=== PATIENT | female | born 1960 | race Caucasian/White ===

== ENCOUNTER → 2017-06-22 | Outpatient (CLI) | payer BC ==
--- NOTE | 2017-06-23 07:46 | CT ---
EXAMINATION TYPE: CT chest wo con DATE OF EXAM: 06/22/2017 COMPARISON: NONE HISTORY: Interstitial lung disease coughing and choking x2 months CT DLP: 123.00 mGycm, Automated exposure control for dose reduction was used. CONTRAST: None TECHNIQUE: Axial images were obtained at 1 mm thick sections at 10 mm intervals. This will limit po rtions of the examination which may not be visualized within the [id number]. Images were obtained in the prone and supine views. FINDINGS: Portion of the thyroid visualized is normal. This has limited evaluation. No suspicious lung nodules or focal infiltrates are present. Mild peribronchial thickening is present . Correlate for mild chronic bronchitis. No enlarged mediastinal or hilar adenopathy is evident. The ascending aorta diameter at the level o f the main pulmonary artery is 3.2 cm. The main pulmonary artery diameter at the bifurcation is 2.[address] sections are obtained through the upper abdomen. Abdomen is essentially unremarkable. IMPRESSIONS: 1. Findings appear suggestive for early mild chronic bronchitis. 2. No suspicious acute findings
== END | disposition home or self-care (01) ==
LOC: RADCTMAIN 18:12
PROVIDERS: ATTEND Family Medicine
DX: J84.9 Interstitial pulmonary disease, unspecified (principal)
CPT/HCPCS: 71250

== ENCOUNTER → 2019-01-22 | Outpatient (CLI) | payer BC ==
--- NOTE | 2019-01-23 09:15 | MM ---
Reason for exam: screening (asymptomatic). Last mammogram was performed 2 years and 8 months ago. History: Patient is postmenopausal. Benign US breast aspiration single LT of the left breast, May 06, 2015. Benign cyst aspiration of the right breast, 2005. Benign US right core biopsy of the right breast, 2005. Benign cyst aspiration of both breasts, 2000. Benign core biopsy of the right breast, 2000. Benign excisional biopsy of the left breast, 1999. Benign left breast needle localization of the left breast, 1999. Taking estrogen for 15 years beginning at age 38. Physical Findings: A clinical breast exam by your physician is recommended on an annual basis and results should be correlated with mammographic findings. MG 3D Screening Mammo W/Cad Bilateral CC and MLO view(s) were taken. XCCL view(s) were taken of the left breast. Prior study comparison: May 25, 2016, bilateral MG diagnostic mammo w CAD REJI. April 24, 2015, left breast MG work up mamm w CAD LT. The breast tissue is heterogeneously dense. This may lower the sensitivity of mammography. There is chronic nodularity in the right breast. No significant changes when compared with prior studies. ASSESSMENT: Negative, BI-RAD 1 RECOMMENDATION: Routine screening mammogram of both breasts in 1 year. Patient should continue monthly self breast exams. A negative report should not preclude additional follow up of suspicious palpable abnormalities.
== END ==
LOC: RADMAMWWP 06:47
PROVIDERS: ATTEND Family Medicine
DX: Z12.31 Encounter for screening mammogram for malignant neoplasm of breast (principal)
CPT/HCPCS: 77063; 77067

== ENCOUNTER → 2021-09-03 | Outpatient (CLI) | payer BC ==
--- NOTE | 2021-09-06 10:40 | MM ---
Reason for exam: screening (asymptomatic). Last mammogram was performed 2 years and 7 months ago. History: Patient is postmenopausal. Benign US breast aspiration single LT of the left breast, May 06, 2015. Benign cyst aspiration of the right breast, 2005. Benign US right core biopsy of the right breast, 2005. Benign cyst aspiration of both breasts, 2000. Benign core biopsy of the right breast, 2000. Benign excisional biopsy of the left breast, 1999. Benign left breast needle localization of the left breast, 1999. Taking estrogen for 15 years beginning at age 38. Physical Findings: A clinical breast exam by your physician is recommended on an annual basis and results should be correlated with mammographic findings. MG Screening Mammo w CAD Bilateral CC and MLO view(s) were taken. Prior study comparison: January 22, 2019, bilateral MG 3d screening mammo w/cad. May 25, 2016, bilateral MG diagnostic mammo w CAD REJI. The breast tissue is heterogeneously dense. This may lower the sensitivity of mammography. Stable benign calcifications. No significant changes when compared with prior studies. ASSESSMENT: Benign, BI-RAD 2 RECOMMENDATION: Routine screening mammogram of both breasts in 1 year.
== END | disposition home or self-care (01) ==
LOC: RADMAMWWP 09:40
PROVIDERS: ATTEND Family Medicine
DX: Z12.31 Encounter for screening mammogram for malignant neoplasm of breast (principal)
CPT/HCPCS: 77067

== ENCOUNTER 2021-10-22 07:23 | Day surgery (SDC) | payer BC ==
[2021-10-21 11:17] VITALS: BMI 19.3
[~2021-10-22 07:23] MED LIST: LACTATED RINGERS 1,000 ML IV SCH
[2021-10-22 07:47] VITALS: RESP 16; TEMP 98.1
[2021-10-22] MEDS ORDERED: LACTATED RINGERS 1,000 ML IV ONE ×2 (07:59)
[2021-10-22] MEDS ORDERED: LIDOCAINE 1% (10MG/ML) FOR IV START INTRADERMA ONE (07:59)
[2021-10-22] MEDS ORDERED: PROPOFOL 10 MG/ML 20 ML VIAL IV ONE (08:22)
--- NOTE | 2021-10-22 08:41 | P.PCN ---
Date of Procedure: 10/22/21 Procedure(s) Performed: BRIEF HISTORY: Patient is a 61-year-old pleasant white female scheduled for an elective colonoscopy as a part of renal for colorectal neoplasia. PROCEDURE PERFORMED: Colonoscopy. PREOPERATIVE DIAGNOSIS: Screening for colon cancer. IV sedation per Anesthesia. PROCEDURE: After informed consent was obtained, the patient, was brought into the endoscopy unit. IV sedation was administered by Anesthesia under continuous monitoring. Digital rectal examination was normal. Initially the Olympus CF-160 flexible video colonoscope was then inserted in the rectum, gradually advanced into the cecum without any difficulty. Careful examination was performed as the scope was gradually being withdrawn. Ileocecal valve and the appendiceal orifice were visualized and appeared normal. Prep was excellent. Mucosa of the cecum, ascending colon, transverse colon, descending colon, sigmoid colon, and rectum appeared normal. Retroflexion was performed in the rectum and no lesions were seen. The patient tolerated the procedure well. IMPRESSION: Normal-appearing colon from rectum to cecum with no evidence of colorectal neoplasia. RECOMMENDATIONS: Findings of this examination were discussed with the patient as well as her family. She was advised to have a repeat screening colonoscopy in .
[2021-10-22 09:06] VITALS: BP 124/81; PULSE 67
== END 2021-10-22 09:27 | disposition home or self-care (01) ==
LOC: ORWHC2ENDO 07:23
PROVIDERS: ATTEND Internal Medicine Gastroenterology
DX: Z12.11 Encounter for screening for malignant neoplasm of colon (principal)
CPT/HCPCS: 45378; J2704

== ENCOUNTER → 2022-09-20 | Outpatient (CLI) | payer BC ==
--- NOTE | 2022-09-20 15:50 | BD ---
EXAMINATION TYPE: Axial Bone Density DATE OF EXAM: 09/20/2022 COMPARISON: 12.27.13 PREVIOUS UNAVAILABLE CLINICAL HISTORY: 62 years year old Female. ICD-10 CODE: Z47.89 S62.009A S72.90XA SCAPHOID FRACTURE, LT TOTAL HIP Height: 67IN Weight: 123LB FRAX RISK QUESTIONS: History of Fracture in Adulthood: YES Secondary Osteoporosis: YES 3. Menopause before 45: YES RISK FACTORS HISTORY OF: Hip Fracture (Right/Left): YES, LEFT When: 2021 History of Wrist Fracture: YES, BILATERAL When: 2021 Surgery to Hip(left): LTHA When: 2021 Family History of Osteoporosis: YES Active: YES Postmenopausal woman: YES Take estrogen and/or progesterone medications: YES, PREMARIN How lon YEARS Frequent falls: YES MEDICATIONS: Thyroid Medications: Which medication: YES LEVOTHYROXINE How Lon YEARS Additional Medications: ALLERGY MED Additional History: HX SHOULDER FX EXAM MEASUREMENTS: Bone mineral densitometry was performed using the [employer] System. Bone mineral density as measured about the Lumbar spine is: ----- L1-L4(G/cm2): 0.851 T Score Values are as follows: ----- L1: -2.6 ----- L2: -2.6 ----- L3: -2.5 ----- L4: -3.2 ----- L1-L4: -2.7 PREVIOUS 12-27-13 UNAVAILABLE Bone mineral density about the R hip (g/cm2): 0.714 T Score values are as follows: -----R Neck: -2.2 -----R Total: -2.3 PREVIOUS UNAVAILABLE FRAX%s: The graph provided illustrates a 16.5% chance for a major osteoporotic fx and a 3.2% chance f or the hips probability for fx in 10 years time. IMPRESSION: Osteoporosis (T Score less than -2.5). There is increased fracture risk and therapy is usually indicated based on age. Re-Screen 1-2 years. NOTE: T-SCORE=SD OF THE YOUNG ADULT MEAN.
== END | disposition home or self-care (01) ==
LOC: RADBDWWP 11:24
PROVIDERS: ATTEND Orthopaedic Surgery
DX: M81.0 Age-related osteoporosis without current pathological fracture (principal); Z78.0 Asymptomatic menopausal state
CPT/HCPCS: 77080

== ENCOUNTER → 2022-10-19 | Outpatient (CLI) | payer BC ==
--- NOTE | 2022-10-19 12:39 | MM ---
Reason for Exam: Screening (asymptomatic). Last mammogram was performed 1 year(s) and 1 month(s) ago. Patient History: Menarche at age 12. First Full-Term at age 21. Left ovary removed at age 38. Right ovary removed at age 38. Hysterectomy at age 38. Postmenopausal. Currently using Estrogen and Progesterone, beginning at age 38 for 15 years. 1999, Benign Excisional Biopsy on the left side. 2000, Benign Core Biopsy on the right side. 2005, Benign Core Biopsy on the right side. 2005, Benign Cyst Aspiration on the right side. 2000, Bilateral Benign Cyst Aspiration. 1999, Benign Excisional Biopsy on the left side. 05/06/2015, Benign Cyst Aspiration on the left side. Risk Values: Kassidy 5 year model risk: 2.0%. NCI Lifetime model risk: 7.9%. Prior Study Comparison: 02/14/2011 Bilateral Diagnostic Ultrasound, [facility]. 10/24/2012 Bilateral Diagnostic Mammogram, [facility]. 12/23/2013 Bilateral Screening Mammogram, [facility]. 04/16/2015 Bilateral Screening Mammogram, [facility]. 04/24/2015 Left Diagnostic Ultrasound, [facility]. 04/24/2015 Left Diagnostic Mammogram, [facility]. 05/25/2016 Bilateral Diagnostic Mammogram, [facility]. 01/22/2019 Bilateral Screening Mammogram, [facility]. 09/03/2021 Bilateral Screening Mammogram, [facility]. Tissue Density: The breast tissue is extremely dense which could obscure a lesion on mammography. Findings: Analyzed By CAD. There is no suspicious group of microcalcifications or new suspicious mass in either breast. Overall Assessment: Negative, BI-RAD 1 Management: Screening Mammogram of both breasts in 1 year. A clinical breast exam by your physician is recommended on an annual basis and results should be correlated with mammographic findings. Electronically signed and approved by: Luis Manuel Borden M.D. Radiologis
== END | disposition home or self-care (01) ==
LOC: RADMAMWWP 08:00
PROVIDERS: ATTEND Family Medicine
DX: Z12.31 Encounter for screening mammogram for malignant neoplasm of breast (principal); Z78.0 Asymptomatic menopausal state; Z98.890 Other specified postprocedural states
CPT/HCPCS: 77067

== ENCOUNTER → 2023-03-03 | Outpatient (CLI) | payer BC ==
--- NOTE | 2023-03-03 13:48 | US ---
EXAMINATION TYPE: US pelvis complete transvag DATE OF EXAM: 03/03/2023 COMPARISON: NONE CLINICAL INDICATION: Female, 62 years old with history of R10.2 PELVIC AND PERINEAL PAIN; Pain total hysterectomy. TECHNIQUE: Transvaginal (TV) and Transabdominal (TA) . EXAM MEASUREMENTS: Uterus: Surgically absent Endometrial Stripe: Surgically absent Right Ovary: Surgically absent Left Ovary: Surgically absent 1. Uterus: Surgically absent 2. Endometrium: Surgically absent 3. Right Ovary: Surgically absent 4. Left Ovary: Surgically absent 5. Bilateral Adnexa: wnl 6. Posterior cul-de-sac: wnl IMPRESSION: No evidence for acute process. No organizing fluid collection or mass.
== END | disposition home or self-care (01) ==
LOC: RADUSWWP 12:53
PROVIDERS: ATTEND Family Medicine
DX: R10.2 Pelvic and perineal pain (principal)
CPT/HCPCS: 76830; 76856

== ENCOUNTER → 2023-03-14 | Outpatient (CLI) | payer BC ==
--- NOTE | 2023-03-14 11:34 | XR ---
EXAMINATION TYPE: XR lumbar spine 2 or 3V DATE OF EXAM: 03/14/2023 Comparison: None Clinical History: 62-year-old female M54.50 low back pain Findings: 5 lumbar type vertebral bodies. Facet arthropathy lower lumbar spine. Vertebral body heights are pres erved and alignment is maintained. Slight dextroconvex curvature of the lumbar spine. Incidental larg e stool burden. Impression: Facet arthropathy lower lumbar spine. No vertebral compression collapse or malalignment. Incidental l arge stool burden; correlate for constipation.
== END | disposition home or self-care (01) ==
LOC: RADXRMAIN 11:07
PROVIDERS: ATTEND Family Medicine
DX: M47.816 Spondylosis without myelopathy or radiculopathy, lumbar region (principal)
CPT/HCPCS: 72100

== ENCOUNTER → 2023-10-19 | Outpatient (CLI) | payer MEDICARE ==
--- NOTE | 2023-10-19 10:14 | US ---
EXAMINATION TYPE: US Aorta Screening DATE OF EXAM: 10/19/2023 COMPARISON: NONE CLINICAL INDICATION: Female, 63 years old with history of Z13.6 SCREENING FOR CARDIOVASCULAR DISEASE; AAA screening TECHNIQUE: Multiple sonographic images of the abdominal aorta are obtained. FINDINGS: EXAM MEASUREMENTS: Abdominal Aorta: Proximal: 2.1 x 1.8 cm Mid: 1.4 x 1.8 cm Distal: 1.6 x 1.6 cm Bifurcation: .7 c m .8 cm SEATER GRINDER NOTES: IMPRESSION: No evidence for abdominal aortic aneurysm.
== END | disposition home or self-care (01) ==
LOC: RADUSWWP 09:43
PROVIDERS: ATTEND Family Medicine
DX: Z13.6 Encounter for screening for cardiovascular disorders (principal)
CPT/HCPCS: 76706

== ENCOUNTER 2024-03-05 06:21 | Day surgery (SDC) | payer MEDICARE ==
[2024-03-01 15:42] VITALS: BMI 19.1
[~2024-03-05 06:21] MED LIST changes: +LIDOCAINE 1% (10MG/ML) FOR IV START INTRADERMA PRN
[2024-03-05] MEDS: LACTATED RINGERS 1,000 ML IV ONE (06:39)
[2024-03-05 07:16] VITALS: TEMP 97.7
[2024-03-05] MEDS ORDERED: LIDOCAINE 2% (PF) 20 MG/ML 5 ML VIAL ONE (07:19)
[2024-03-05] MEDS ORDERED: PROPOFOL 10 MG/ML 20 ML VIAL IV ONE (07:19)
[2024-03-05] MEDS ORDERED: fentaNYL (PF) 50 MCG/ML 2 ML AMP ONE (07:19)
--- NOTE | 2024-03-05 07:46 | P.PCN ---
Date of Procedure: 03/05/24 Procedure(s) Performed: Brief history: Patient is a pleasant 63-year-old white female scheduled for an elective upper endoscopy as well as colonoscopy as a part of evaluation of iron deficiency anemia.She denies any abdominal pain, nausea vomiting, rectal bleeding or melena. Procedure performed: Esophagogastroduodenoscopy With biopsy Colonoscopy Preoperative diagnosis: Iron deficiency anemia Anesthesia: [facility] [place] Procedure: After informed consent was obtained from the patient was brought into the endoscopy unit and IV sedation was administered by anesthesia under continuous monitoring. Initially upper endoscopy was done. The Olympus GF 160 video endoscope was inserted inserted into the mouth and esophagus intubated without any difficulty and was gradually advanced into the stomach and duodenum and carefully examined. The bulb and second part of the duodenum At decreased duodenal folds with atrophic appearing villi suspicious for celiac disease and multiple biopsies were done from this area. The scope was then withdrawn into the stomach adequately insufflated with air and upon careful examination the antrum and body, cardia and fundus appeared normal. The scope was then withdrawn into the esophagus. The GE junction was located at 40 cm to the incisors. It appeared regular with no erythema erosions or ulcerations. Rest of the esophagus appeared normal. Patient tolerated the procedure well. At this time the patient continued to remain sedation. Initial digital rectal examination was normal. Olympus CF 160 video colonoscope was then inserted into the rectum and gradually advanced to the cecum without any difficulty. Careful examination was performed as the scope was gradually being withdrawn. The prep was excellent. The cecum, ascending colon, transverse colon, descending colon, sigmoid colon and rectum appeared normal. Retroflexion was performed in the rectum and no lesions were noted. Patient tolerated the procedure well. Impression: 1.Upper endoscopy revealed decreased duodenal folds as well as atrophic- appearing mucosa in the duodenum suspicious for celiac disease status post multiple biopsies 2.Colonoscopy was within normal limits with no evidence of colorectal neoplasia Recommendations: Findings of this examination were discussed with the patient as well as A family. She was advised to follow with the biopsy results. Obtain celiac panel today. Follow up in office in 2 weeks. Recommend repeat screening colonoscopy in 10 years.
[2024-03-05 08:00] VITALS: RESP 14
[2024-03-05 08:42] VITALS: BP 120/71; PULSE 61
[2024-03-05 17:27] LABS: Gliadin AB IgA, Deaminated POSITIVE; Gliadin AB IgA, Unit >250.0 U/mL; Gliadin AB IgG, Deaminated POSITIVE; Gliadin AB IgG, Unit 33.5 U/mL
== END 2024-03-05 08:51 | disposition home or self-care (01) ==
LOC: ORWHC2ENDO 06:21
PROVIDERS: ATTEND Internal Medicine Gastroenterology
DX: K29.80 Duodenitis without bleeding (principal); D72.820 Lymphocytosis (symptomatic); E03.9 Hypothyroidism, unspecified; D50.9 Iron deficiency anemia, unspecified; Z79.890 Hormone replacement therapy; Z90.710 Acquired absence of both cervix and uterus; Z96.642 Presence of left artificial hip joint; Z79.899 Other long term (current) drug therapy; Z91.048 Other nonmedicinal substance allergy status
CPT/HCPCS: 88305; 83516 ×4; 43239; J3010; J2704; J2001; G0121

== ENCOUNTER → 2024-10-03 | Outpatient (CLI) | payer MEDICARE ==
--- NOTE | 2024-10-05 15:38 | MM ---
Reason for Exam: Screening (asymptomatic). Last mammogram was performed 2 year(s) and 0 month(s) ago. Patient History: Menarche at age 12. First Full-Term at age 21. Left ovary removed at age 38. Right ovary removed at age 38. Hysterectomy at age 38. Postmenopausal. Currently using Estrogen and Progesterone, beginning at age 38 for 15 years. 1999, Benign Excisional Biopsy on the left side. 2000, Benign Core Biopsy on the right side. 2005, Benign Core Biopsy on the right side. 2005, Benign Cyst Aspiration on the right side. 2000, Bilateral Benign Cyst Aspiration. 1999, Benign Excisional Biopsy on the left side. 05/06/2015, Benign Cyst Aspiration on the left side. Risk Values: Kassidy 5 year model risk: 2.1%. NCI Lifetime model risk: 7.3%. Prior Study Comparison: 01/22/2019 Bilateral Screening Mammogram, [facility]. 09/03/2021 Bilateral Screening Mammogram, [facility]. 10/19/2022 Bilateral MG screening mammo w CAD, [facility]. Tissue Density: The breasts are extremely dense, which lowers the sensitivity of mammography. Findings: Analyzed By CAD. The pattern is symmetrical. Benign calcifications are within the left breast. Some benign vascular calcification is within the left breast No suspicious groups of microcalcifications, spiculated or lobular masses, architectural distortion or other secondary signs of malignancy are mammographically apparent. Overall Assessment: Benign, BI-RAD 2 Management: Screening Mammogram of both breasts in 1 year. A negative mammogram report should not preclude additional follow up of suspicious palpable abnormalities. Patient should continue monthly self breast exam. A clinical breast exam by your physician is recommended on an annual basis and results should be correlated with mammographic findings. Note on Kassidy scores and lifetime risk: 1. A Kassidy score greater than 3% is considered moderate risk. If this is the case, consider specialist referral to assess eligibility for a risk reducing agent. 2. If overall lifetime risk for the development of breast cancer is 20% or higher, the patient may qualify for future screening with alternating mammogram and breast MRI. [facility], , 10/05/2024 3:36 PM. Electronically signed and approved by: Nghia Carbajal D.O. Radiologis
--- NOTE | 2024-10-06 22:31 | BD ---
EXAMINATION TYPE: Axial Bone Density DATE OF EXAM: 10/03/2024 CLINICAL HISTORY: 64 years old Female. ICD-10 CODE: Z78.0 ASYMPTOMATIC MENOPAUSAL , Additional Hist ory: Height: 68 Weight: 137 FRAX RISK QUESTIONS: Alcohol (3 or more units per day): no Family History (Parent hip fracture): no Glucocorticoids (More than 3mos): no (Ex: prednisone, prednisolone, methylprednisolone, dexamethasone, and hydrocortisone). History of Fracture in Adulthood: yes Secondary Osteoporosis: 1. Type 1 Diabetes: no 2. Hyperthyroidism: no 3. Menopause before 45: yes 4. Malnutrition: yes 5. Chronic liver disease: no Rheumatoid Arthritis: no Current Tobacco Use: no RISK FACTORS HISTORY OF: Hip Fracture (Right/Left): left When: 2021 Surgery to Spine/Hip(right/left)/Wrist (right/left): yes /left hip When: 2021 MEDICATIONS: Thyroid Medications: levothyroxine How Lon years Osteoporosis Medications: Prolia How Lon shots EXAM MEASUREMENTS: Bone mineral densitometry was performed using the [employer] System. Bone mineral density as measured about the Lumbar spine is: ----- L1-L4(G/cm2): 0.896 T Score Values are as follows: ----- L1: -2.0 ----- L2: -1.9 ----- L3: -2.1 ----- L4: -3.3 ----- L1-L4: -2.4 Z Score Values are as follows: ----- L1: -0.3 ----- L2: -0.2 ----- L3: -0.4 ----- L4: -1.6 ----- L1-L4: -0.7 Bone mineral density has: increased 5.3 % since study of: 09.20.2022 Bone mineral density about the R hip (g/cm2): 0.758 T Score values are as follows: -----R Neck: -2.2 -----R Total: -2.0 Z Score values are as follows: -----R Neck: -0.6 -----R Total: -0.7 Bone mineral density has: increased 6.2 % since study of: 09.20.2022 FRAX%s: The graph provided illustrates a 17.5% chance for a major osteoporotic fx and a 3.3% chance f or the hips probability for fx in 10 years time. IMPRESSION: Osteopenia (T Score between -2.5 and -1). There is slightly increased risk of fracture and the patient may be considered for treatment. Re-Screen 2-5 years. NOTE: T-SCORE=SD OF THE YOUNG ADULT MEAN. [facility], , 10/06/2024 10:29 PM
== END | disposition home or self-care (01) ==
LOC: RADMAMWWP 07:48
PROVIDERS: ATTEND Family Medicine
DX: Z12.31 Encounter for screening mammogram for malignant neoplasm of breast (principal); E46 Unspecified protein-calorie malnutrition; M85.89 Other specified disorders of bone density and structure, multiple sites; Z78.0 Asymptomatic menopausal state; Z90.722 Acquired absence of ovaries, bilateral
CPT/HCPCS: 77063; 77067; 77080

== ENCOUNTER → 2024-12-09 | Outpatient (CLI) | payer MEDICARE ==
[2024-12-09 19:15] LABS: Gliadin AB IgA, Deaminated Positive (Negative); Gliadin AB IgA, Unit 26.7 U/mL; Gliadin AB IgG, Deaminated Negative (Negative); Gliadin AB IgG, Unit 2.5 U/mL
== END | disposition home or self-care (01) ==
LOC: LABWHC1 09:27
PROVIDERS: ATTEND Internal Medicine Gastroenterology
DX: K90.0 Celiac disease (principal)
CPT/HCPCS: 36415; 83516